=== PATIENT | female | born 2000 | race Caucasian/White ===

== ENCOUNTER 2021-09-28 17:11 | Emergency (ER) | payer SELFPAY ==
--- NOTE | ~2021-09-28 | CT_ITS ---
EXAMINATION: CT soft tissue neck wo con DATE: 09/28/2021 18:21 INDICATION: Right branchial cleft cyst TECHNIQUE: Computed tomography (CT) of the neck was performed without intravenous contrast. The dose- length product was 327.75 mGy-cm. Automated exposure control and iterative reconstruction technique w ere employed. COMPARISON: No prior studies for comparison. FINDINGS: Anterior to the the right sternocleidomastoid mastoid muscle there is a cystic mass measuri ng 2 x 1.3 x 1.8 cm, suspicious for branchial cleft cyst. Differential diagnosis includes sebaceous c yst and abscess. Thyroid gland is unremarkable. Lung apices are normal. No endobronchial lesions. No fracture, subluxation or dislocation. Paranasal sinuses and mastoids are pneumatized. No abnormality of the mucosal or parapharyngeal spaces. No thoracic lymphadenopathy. IMPRESSION: 1. Cystic mass anterior to the right sternocleidomastoid muscle measuring 2 x 1.3 x 1.8 cm, most like ly a branchial cleft cyst given the clinical history. Differential diagnosis would include sebaceous cyst and abscess in the appropriate clinical setting. Reviewed, dictated and finalized at location A. IMPRESSION: 1. Cystic mass anterior to the right sternocleidomastoid muscle measuring 2 x 1 .3 x 1.8 cm, most likely a branchial cleft cyst given the clinical history. Dif ferential diagnosis would include sebaceous cyst and abscess in the appropriate clinical setting.
[2021-09-28 17:14] VITALS: BP 113/64; PULSE 62; RESP 18; TEMP 36.2; O2SAT 100
--- NOTE | 2021-09-28 17:42 | ED.SKABFB ---
HPI - Skin/Abscess/Foreign Bdy General Chief complaint: Skin/Abscess/Foreign Body <Emilia Vail PA-C - Last Filed: 09/28/21 18:57> Stated complaint: cyst on neck <Emilia Vail PA-C - Last Filed: 09/28/21 18:57> Time Seen by Provider: 09/28/21 17:23 <SIMONA Wright Last Filed: 09/28/21 18:57> Source: patient <Emilia Vail PA-C - Last Filed: 09/28/21 18:57> Mode of arrival: ambulatory <SIMONA Wright Last Filed: 09/28/21 18:57> Limitations: no limitations <Emilia Vail PA-C - Last Filed: 09/28/21 18:57> History of Present Illness HPI narrative: This is a 21-year-old female that presents to the emergency department for a cyst on her neck present for the last 6 months. Reports she has been evaluated by ENT for this and diagnosed with a branchial cleft cyst. She was supposed to have further imaging and follow-up, but lost her insurance. Reports over the last month the cyst has become painful. She has regained insurance which prompted her to be seen for this again. Denies fever or erythema of the cyst. <Emilia Vail PA-C - Last Filed: 09/28/21 18:57> Related Data Allergies/Adverse reactions: Allergies Allergy/AdvReac Type Severity Reaction Status Date / Time No Known Allergies Allergy Verified 09/28/21 17:17 <Emilia Vail PA-C - Last Filed: 09/28/21 18:57> Review of Systems Review of Systems: CONSTITUTIONAL: Denies fever ENT: Denies dysphagia RESPIRATORY: Denies dyspnea. <SIMONA Wright Last Filed: 09/28/21 18:57> All systems reviewed & are unremarkable except as noted in HPI and below <SIMONA Wright Last Filed: 09/28/21 18:57> [facility] Past Medical History Medical History: Medical History (Updated 09/29/21 @ 00:00 by Background Daemon) Anxiety and depression Suicide attempt, sequela <Emilia Vail PA-C - Last Filed: 09/28/21 18:57> Social History Social History: Social History Smoking status: Former smoker Smoking end date: 11/29/17 Alcohol intake: never <Emilia Vail PA-C - Last Filed: 09/28/21 18:57> Exam Narrative: GENERAL: Well-appearing, well-nourished, and in no acute distress. HEAD: Normocephalic, atraumatic. EYES: EOMI. ENT: Nares clear, no rhinorrhea or epistaxis. Mucous membranes moist. Oropharynx without tonsillar hypertrophy exudate or other lesions. Bilateral TMs pearly lion non-bulging NECK: Supple. Soft, 10 cm mass noted on the right side of the neck anteriorly, no overlying erythema or fluctuance to suggest infection CHEST: Clear to auscultation. No respiratory distress. No wheezes rales or rhonchi HEART: Regular rate and rhythm. No murmur heard. Normal peripheral pulses. EXTREMITIES: Normal range of motion. No edema. SKIN: Warm, dry, no rash. NEURO: No focal deficits. Alert and oriented x3. PSYCH: Normal mood and affect <Emilia Vail PA-C - Last Filed: 09/28/21 18:57> Course LEISURE STUDIES PROFESSOR/PA Physician Supervision For this patient encounter, I reviewed the LEISURE STUDIES PROFESSOR or PA documentation, treatment plan, and medical decision making; and I agree with plan. Talia Ledesma MD <Talia Ledesma MD - Last Filed: 09/29/21 00:17> Vital Signs Vital signs: Vital Signs Temperature 36.2 C L 09/28/21 17:14 Pulse Rate 62 09/28/21 17:14 Respiratory Rate 18 09/28/21 17:14 Blood Pressure 113/64 09/28/21 17:14 Pulse Oximetry 100 09/28/21 17:14 Temperature 36.2 C L 09/28/21 17:14 Pulse Rate 62 09/28/21 17:14 Respiratory Rate 18 09/28/21 17:14 Blood Pressure 113/64 09/28/21 17:14 Pulse Oximetry 100 09/28/21 17:14 <Emilia Vail PA-C - Last Filed: 09/28/21 18:57> Vital Signs Temperature 36.2 C L 09/28/21 17:14 Pulse Rate 62 09/28/21 17:14 Respiratory Rate 18 09/28/21 17:14 Blood Pressure 113/64 09/28/21 17:14 Pulse Oximetry 100 09/28/21 17:14
[2021-09-28 17:54] LABS: Basophils Absolute Auto 0.1 K/mm3 (0.0-0.1); Basophils Percent Auto 0.8 % (0.2-1.2); Eosinophils Absolute Auto 0.3 K/mm3 (0-0.3); Eosinophils Percent Auto 3.2 % (0-4.4); Hematocrit 43.3 % (37.0-47.0); Hemoglobin 14.2 g/dL (12.0-15.0); Immature Granulocyte Absolute 0.03 K/mm3 (0.00-0.031); Immature Granulocyte Percent A 0.3 % (0-0.5); Lymphocytes Absolute Auto 3.21 K/mm3 (0.9-3.2); Lymphocytes Percent Auto 31.1 % (18.3-44.2); Mean Corpuscular HGB Conc 32.8 g/dl (32-36); Mean Corpuscular Volume 94.5 fl (80-100); Mean Platelet Volume 9.8 fl (7.4-10.4); Monocytes Absolute Auto 0.5 K/mm3 (0.1-0.6); Neutrophils Absolute Auto 6.1 K/mm3 (1.3-6.7); Neutrophils Percent Auto 59.6 % (45.5-73.1); Platelet Count Result 249 k/mm3 (150-375); Red Blood Count 4.58 M/mm3 (4.2-5.4); Red Cell Distribution Width 12.2 % (11.5-14.5); White Blood Count 10.3 K/mm3 (4.5-10.0)
[2021-09-28 18:11] LABS: Anion Gap 7 mmol/L (8-16); Blood Urea Nitrogen 16 mg/dL (7-17); CRP < 0.5 mg/dL (<1.0); Calcium 9.5 mg/dL (8.4-10.2); Carbon Dioxide 30 mmol/L (22-30); Chloride 102 mmol/L (98-107); Estimated CRCL calculation 84 ml/min; Estimated Glomerular Filt Rate > 60; Glucose 99 mg/dL (65-110); Sodium 139 mmol/L (137-145)
[2021-09-28 18:23] LABS: Erythrocyte Sedimentation Rate 3 mm/hr (0-20)
== END 2021-09-28 19:05 | disposition home or self-care (01) ==
PROVIDERS: Physician Assistant; Emergency Provider Emergency Medicine; PCP Family Medicine
DX: Q18.0 Sinus, fistula and cyst of branchial cleft (principal); Z87.891 Personal history of nicotine dependence
CPT/HCPCS: 36415; 70490; 80048; 85025; 85652; 86140; 99284

== ENCOUNTER 2022-01-20 01:01 | Day surgery (SDC) | payer OTHER, SELFPAY ==
[2022-01-12 09:37] VITALS: BMI 22.3
--- NOTE | 2022-01-12 09:45 | PC.NURSE ---
Report to the Outpatient Waiting Room, entrance under the green pavilion located off [facility], at time 0615 on date 01/20/22. OR Time: 0815. - You will be asked a series of questions to screen for COVID 19 for your protection. - A mask is required within the hospital. - No visitors are allowed at this time. Preoperative COVID Testing Requirements: No COVID Test needed if: (proof is required; if not received patient will have Rapid Test prior to entry) - Patient has received COVID Vaccine at least 14 days prior to procedure date or - Patient has positive COVID test result within last 90 days of surgery date. COVID Test needed if above criteria is not met Patients may have clear liquids (water, carbonated beverages, clear teas, apple juice) until 3 hours prior to surgery with a maximum of 20 ounces. - No food from midnight until time of surgery Take the following medications with a SIP of water the morning of surgery: CEPHALEXIN, CLONIDINE, ESCITALOPRAM Medications to discontinue per physician: N/A Date to take last dose: N/A Please no make-up, nail sami, hairspray, perfume, deodorant, or body powder the day of surgery. No jewelry (including any body piercings) or valuables the day of surgery, leave them at home. Please take a shower or bath the night before, or the morning of, surgery with an antibacterial soap. Wear comfortable, loose fitting clothing. - Jewelry must be removed prior to entering the operating room. Rings and piercings that are not removed may be cut off. - The hospital will not accept responsibility for valuables. - Please leave all valuables, including medications, at home the day of surgery. If you are going home after surgery, a licensed local flatbed driver must drive you home. - NO public transportation without another adult. - We recommend that an adult stay with you for 24 hours following discharge. - We also recommend that you do not drive, make important decision, drink alcoholic beverages, or take any drugs that were not prescribed by your health care provider for at least 24 hours after your discharge time. Follow any additional instructions given to you from your surgeon. Telephone instructions given to REY MUNOZ and asked if any additional questions and then verbalized understanding. Patient advised to call surgeon office or pre surgery nurse liaison [phone] if any additional questions.
--- NOTE | 2022-01-19 06:48 | PM.HPGS ---
History of Present Illness History of Present Illness Consent: Risks, benefits, and alternatives have been discussed and questions answered. Patient agrees to proceed with procedure. 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 it has been draining lately plans excision Review of Systems Review of Systems: All systems reviewed & are unremarkable except as noted in HPI and below ROS unobtainable: Yes unobtainable due to endotracheal tube PMFSH Past Medical History Medical History Anxiety and depression Suicide attempt, sequela Social History Social History Smoking status: Never smoker Smoking end date: 11/29/17 Alcohol intake: current Drinks per week: 6 Substance use: current Substance use type: marijuana Living arrangements: with friend(s) Spiritual care concerns: No Meds Home Medications and Allergies Home Medications Medication Instructions Recorded Confirmed Type cephalexin 500 mg capsule 500 mg PO Q12H #20 cap 12/30/21 01/12/22 Rx clonidine HCl 0.3 mg tablet 0.5 mg PO DAILY tablet 12/30/21 01/12/22 History escitalopram oxalate 20 mg tablet 20 mg PO DAILY 12/30/21 01/12/22 History Allergies Allergy/AdvReac Type Severity Reaction Status Date / Time No Known Allergies Allergy Verified 01/12/22 09:36 Exam Narrative: as clear heart rhythms ABS soft extremities negative right cyst in the mid neck Assessment and Plan Additional Plan plan excision branchial cleft cyst right side
--- NOTE | 2022-01-19 06:51 | P.HP_ITS ---
History of Present Illness History of Present Illness Consent: Risks, benefits, and alternatives have been discussed and questions answered. Patient agrees to proceed with procedure. Chief complaint: right branchial cleft cyst Narrative: Phil Cesar is a 21 year old female [facility] Past Medical History Medical History Anxiety and depression Suicide attempt, sequela Social History Social History Smoking status: Never smoker Smoking end date: 11/29/17 Alcohol intake: current Drinks per week: 6 Substance use: current Substance use type: marijuana Living arrangements: with friend(s) Spiritual care concerns: No Meds Home Medications and Allergies Home Medications Medication Instructions Recorded Confirmed Type cephalexin 500 mg capsule 500 mg PO Q12H #20 cap 12/30/21 01/12/22 Rx clonidine HCl 0.3 mg tablet 0.5 mg PO DAILY tablet 12/30/21 01/12/22 History escitalopram oxalate 20 mg tablet 20 mg PO DAILY 12/30/21 01/12/22 History Allergies Allergy/AdvReac Type Severity Reaction Status Date / Time No Known Allergies Allergy Verified 01/12/22 09:36
[2022-01-20] VITALS (10 sets, daily range): BP systolic 107–141; BP diastolic 71–92; PULSE 55–115; RESP 16–20; TEMP 36.3–36.7; O2SAT 98–100; BMI 21.8
--- NOTE | 2022-01-20 05:54 | WPDHPUPDATE1 ---
History and Physical Update Update Date/Time: 01/20/22 05:54 History and Physical has been reviewed, including an updated exam of the patient. There are NO changes in the patient's condition. Risks, benefits, and alternatives have been discussed and questions answered. Patient agrees to proceed with procedure.
--- NOTE | 2022-01-20 08:00 | SUR.PREOP ---
DR. LOZANO AWARE THAT PATIENT HAS JEWELRY IN NOSE AND RIGHT EAR
[2022-01-20] MEDS: LACTATED RINGERS 1,000 ML 30 ML IV CONT (08:09)
--- NOTE | 2022-01-20 08:14 | WPDANESEPPF ---
Anes - Initial Pre Proc Eval Procedure: Operation Date: 01/20/22 08:45 Proposed Procedures p Excision Right Branchial Cleft Cyst - Sharif Hunt MD Date/Time: 01/20/22 08:14 Surgeon: Sharif Hunt MD Pre Op Diagnosis: right branchial cleft cyst Patient Data Age: 21 Gender: F Height: 1.63 m Weight: 57.6 kg Allergies Allergy/AdvReac Type Severity Reaction Status Date / Time No Known Allergies Allergy Verified 01/20/22 07:20 Home Medications Medication Instructions Recorded Confirmed Type cephalexin 500 mg capsule 500 mg PO Q12H #20 cap 12/30/21 01/12/22 Rx clonidine HCl 0.3 mg tablet 0.5 mg PO DAILY tablet 12/30/21 01/12/22 History escitalopram oxalate 20 mg tablet 20 mg PO DAILY 12/30/21 01/12/22 History Patient hx anesthesia problems: none Family hx anesthesia problems: none Results Review: All pre-operative results and documents have been reviewed as part of the pre-operative evaluation. [facility] Past Medical History Medical History Anxiety and depression Suicide attempt, sequela Social History Social History Smoking status: Never smoker Smoking end date: 11/29/17 Alcohol intake: current Drinks per week: 6 Substance use: current Substance use type: marijuana Living arrangements: with friend(s) Spiritual care concerns: No Anes - Eval Final PreProcedure Day of Procedure 01/20/22 08:14 Patient weight: normal Heart: regular rate and rhythm Lungs: clear to auscultation Airway: Mallampati scale class II Last oral intake: >/= 8 hours ASA classification: II Emergent: no Anesthetic plan: proceed Anesthesia type and monitoring: general ETT and standard monitoring Results Review: All pre-operative results and documents have been reviewed as part of the pre-operative evaluation. Informed Consent: The patient's anesthetic plan and its attendant risks and benefits were discussed with the patient/family/POA. Questions were solicited and answers provided to the satisfaction of the patient/family/POA.
[2022-01-20] MEDS: LIDO 2%/EPINEPHRINE 1:100,000 20 ML VIAL INFILTRATE (08:56)
--- NOTE | 2022-01-20 09:46 | W.PM.PROC2 ---
Procedure Note - Detailed Date of Procedure 01/20/22 Pre-op Diagnosis right branchial cleft cyst Post-op Diagnosis same Procedure Performed Patient was prepped and draped in the usual fashion duction and general endotracheal anesthesia the opening of the branchial cyst was noted elliptical incision made around the cyst was followed into the deep into the neck and a stasis was obtained with clamps cautery bipolar cautery and hematuria a right angle clamp was used to clamp the base of the cyst and suture ligated with 2-0 silk was then closed in layers after a Iván drain placed in of Monocryl and glue Surgeon Sharif Hunt MD Description of Procedure Excision branchial cleft cyst
[2022-01-20] MEDS: fentaNYL CITRATE INJ (*CRX) 100 MCG/2 ML VIAL 25 MCG IV PUSH ×8 (10:15→10:38)
[2022-01-20] MEDS: oxyCODONE HCL (*CRX) 5 MG TAB IR PO (12:01)
== END 2022-01-20 12:36 | disposition home or self-care (01) ==
PROVIDERS: PCP Family Medicine; Visit Provider Otolaryngology
PROC: (CPT 42810; principal; 2022-01-20 08:45)
DX: Q18.0 Sinus, fistula and cyst of branchial cleft (principal); L98.8 Other specified disorders of the skin and subcutaneous tissue; F12.90 Cannabis use, unspecified, uncomplicated
CPT/HCPCS: 42810; 88305; 88312; A9270; J0330; J1100; J2250; J2405; J2704; J3010; J7120

== ENCOUNTER 2023-05-25 00:42 | Day surgery (SDC) | payer SELFPAY ==
[2023-05-19 14:03] VITALS: BMI 21.9
--- NOTE | 2023-05-19 14:09 | PC.NURSE ---
Report to the Outpatient Waiting Room, entrance under the green pavilion located off [facility], at time _0945 on date _05/25/23_. Planned Procedure Time: 1145_. Time changes happen often and if your time is changed the preop area will call you the afternoon before. - You and your visitor will be asked to self-screen and do not enter if you have any COVID symptoms. - A mask is optional within the hospital at this time. Patients may have clear liquids (water, carbonated beverages, clear teas, apple juice) until 3 hours prior to surgery with a maximum of 20 ounces. - No food from midnight until time of surgery - Infants may have breast milk until 4 hours before surgery, formula 6 hours prior to surgery. - Children will be allowed to drink immediately following surgery. If applicable, please bring a bottle or sippy cup to assist with drinking. Juice, water, soda, and popsicles are readily available. For infants on formula, please bring formula the day of surgery. Pacifiers are allowed. Take the following medications with a SIP of water the morning of surgery: ____VENLAFEXINE, MAY TAKE HYDROXIZINE, PROPANOLOL IF NEEDED DO NOT STOP ANY OF YOUR OTHER PRESCRIPTION MEDICATIONS PRIOR TO SURGERY ?EXCEPT THE FOLLOWING Medications to discontinue per physician NONE Date to take last dose Please no make-up, nail greek, hairspray, perfume, deodorant, or body powder the day of surgery. No jewelry (including any body piercings) or valuables the day of surgery, leave them at home. Please take a shower or bath the night before, or the morning of, surgery with an antibacterial soap. Wear comfortable, loose fitting clothing. Children are encouraged to wear pajamas. - Jewelry must be removed prior to entering the operating room. Rings and piercings that are not removed may be cut off. - The hospital will not accept responsibility for valuables. - Please leave all valuables, including medications, at home the day of surgery. If you are going home after surgery, a licensed driver messenger must drive you home. - NO public transportation without another adult if you receive anesthesia. - We recommend that an adult stay with you for 24 hours following discharge. - We also recommend that you do not drive, make important decision, drink alcoholic beverages, or take any drugs that were not prescribed by your health care provider for at least 24 hours after your discharge time. For Pediatric surgeries, we recommend two adults accompany the child home. Follow any additional instructions given to you from your surgeon. If you or anyone in your household have experienced Covid symptoms in the past week, please notify your surgeon or the nurse liaison at the phone number below for possible testing. Telephone instructions given to _KRYSTINO_and asked if any additional questions and then verbalized understanding. Patient advised to call surgeon office or pre surgery nurse liaison [phone] if any additional questions.
--- NOTE | 2023-05-24 16:56 | PM.IMHP ---
H&P: HPI History of Present Illness Date/Time: 05/24/23 16:56 Chief Complaint: Recurrent tonsillitis chronic tonsillitis sleep disordered breathing tonsillar hypertrophy snoring adenoid hypertrophy Narrative: planned procedure Review of Systems Review of Systems: All systems reviewed & are unremarkable except as noted in HPI and below [facility] Past Medical History Medical History Anxiety and depression 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 Suicide attempt, sequela Surgical History Surgical History H/O neck surgery 01.20.22 branchial cleft cyst removal Social History Social History (Updated 03/30/23 @ 13:09 by Nurys Schmitt MA) Years smoked: 2 Smoking status: Former smoker Tobacco type: cigarettes Smoking end date: 11/29/17 Alcohol intake: current Drinks per week: 3 Substance use: current Substance use type: marijuana Other substance usage details: DAILY Lack of Transportation: No Lack of Food: Never True Current Housing: I Have Housing Concerned About Future Housing: No Difficulty Paying Gas/Electric Bills: No Difficulty Paying for Meds: YES Currently Unemployed: No Education: High School Diploma/GED Difficulty w/ Childcare or Family Care: No Living arrangements: alone Spiritual care concerns: No Meds Home Medications and Allergies Home Medications Medication Instructions Recorded Confirmed Type omeprazole 10 mg capsule,delayed 10 mg PO DAILY #30 caps 03/22/23 05/19/23 Rx release venlafaxine 37.5 mg See Rx Instructions .Route 04/09/23 05/19/23 Rx capsule,extended release 24 hr .COMPLEX #60 caps hydroxyzine HCl 25 mg tablet 25 mg PO TID PRN anxiety #60 tabs 05/03/23 05/19/23 Rx propranolol 10 mg tablet 10 mg PO BID PRN anxiety #60 tabs 05/03/23 05/19/23 Rx Allergies Allergy/AdvReac Type Severity Reaction Status Date / Time No Known Allergies Allergy Verified 03/30/23 13:13 Exam Narrative: large tonsils large adenoids Assessment and Plan Assessment and plan (1) Nasal obstruction: Code(s): J34.89 - Other specified disorders of nose and nasal sinuses Status: Acute Assessment and Plan: Plan OR tonsillectomy adenoidectomy risks were discussed including bleeding infection damage to surrounding structures inherent risks of using her cots need for further procedures change in swallow change in taste postoperative bleeding 3-5%.? Patient voiced understanding of these risks and agreed.? Damage to any structure above the clavicles by myself damage to any structure during the induction and maintenance of anesthesia. (2) Snoring: Code(s): R06.83 - Snoring Status: Acute (3) Adenoid hypertrophy: Code(s): J35.2 - Hypertrophy of adenoids Status: Acute (4) Recurrent tonsillitis: Code(s): J03.91 - Acute recurrent tonsillitis, unspecified Status: Acute (5) Chronic tonsillitis: Code(s): J35.01 - Chronic tonsillitis Status: Acute
[2023-05-25] VITALS (9 sets, daily range): BP systolic 105–131; BP diastolic 68–85; PULSE 57–103; RESP 12–18; TEMP 36.1–36.4; O2SAT 99–100; BMI 24.5
--- NOTE | 2023-05-25 07:15 | WPDHPUPDATE1 ---
History and Physical Update Update Date/Time: 05/25/23 07:15 History and Physical has been reviewed, including an updated exam of the patient. There are NO changes in the patient's condition. Risks, benefits, and alternatives have been discussed and questions answered. Patient agrees to proceed with procedure.
[2023-05-25] MEDS: LACTATED RINGERS 1,000 ML 30 ML IV CONT ×2 (12:10→14:29)
[2023-05-25] MEDS: ACETAMINOPHEN 500 MG TABLET 1000 MG PO (12:15)
--- NOTE | 2023-05-25 12:45 | P.PNAN_ITS ---
Anes - Initial Pre Proc Eval Procedure: Operation Date: 05/25/23 13:15 Proposed Procedures p Tonsillectomy And Adenoidectomy - Gregg Pineda MD Date/Time: 05/25/23 12:45 Surgeon: Gregg Pineda MD Pre Op Diagnosis: Hypertropic Adenoids, Tonsillitis Patient Data Age: 23 Gender: F Height: 1.63 m Weight: 58 kg Allergies Allergy/AdvReac Type Severity Reaction Status Date / Time No Known Allergies Allergy Verified 05/25/23 12:02 Home Medications Medication Instructions Recorded Confirmed Type omeprazole 10 mg capsule,delayed 10 mg PO DAILY #30 caps 03/22/23 05/19/23 Rx release venlafaxine 37.5 mg See Rx Instructions .Route 04/09/23 05/19/23 Rx capsule,extended release 24 hr .COMPLEX #60 caps hydroxyzine HCl 25 mg tablet 25 mg PO TID PRN anxiety #60 tabs 05/03/23 05/19/23 Rx propranolol 10 mg tablet 10 mg PO BID PRN anxiety #60 tabs 05/03/23 05/19/23 Rx Patient hx anesthesia problems: none Family hx anesthesia problems: none Results Review: All pre-operative results and documents have been reviewed as part of the pre- operative evaluation. [facility] Past Medical History Medical History Anxiety and depression 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 Suicide attempt, sequela Surgical History Surgical History H/O neck surgery 01.20.22 branchial cleft cyst removal Social History Social History Years smoked: 2 Smoking status: Former smoker Tobacco type: cigarettes Smoking end date: 11/29/17 Alcohol intake: current Drinks per week: 3 Substance use: current Substance use type: marijuana Other substance usage details: DAILY Lack of Transportation: No Lack of Food: Never True Current Housing: I Have Housing Concerned About Future Housing: No Difficulty Paying Gas/Electric Bills: No Difficulty Paying for Meds: YES Currently Unemployed: No Education: High School Diploma/GED Difficulty w/ Childcare or Family Care: No Living arrangements: alone Spiritual care concerns: No Anes - Eval Final PreProcedure Day of Procedure 05/25/23 12:45 Patient weight: normal Heart: regular rate and rhythm Lungs: clear to auscultation Airway: Mallampati scale class 1 Neurological: alert and oriented Last oral intake: >/= 8 hours ASA classification: III Emergent: no Anesthetic plan: proceed Anesthesia type and monitoring: general ETT and standard monitoring Results Review: All pre-operative results and documents have been reviewed as part of the pre- operative evaluation. Informed Consent: The patient's anesthetic plan and its attendant risks and benefits were discussed with the patient/family/POA. Questions were solicited and answers provided to the satisfaction of the patient/family/POA.
[2023-05-25] MEDS: fentaNYL CITRATE INJ (*CRX) 100 MCG/2 ML VIAL 25 MCG IV PUSH ×6 (13:58→14:44)
[2023-05-25] MEDS: oxyCODONE HCL (*CRX) 5 MG TAB IR PO (15:12)
--- NOTE | 2023-05-25 15:34 | W.PM.PROC2 ---
Procedure Note - Detailed Date of Procedure 05/25/23 Pre-op Diagnosis Hypertropic Adenoids, Tonsillitis Post-op Diagnosis Same Procedure Performed tonsillectomy Surgeon Gregg Pineda MD Anesthesia General Indications see above Findings large tonsils essentially absent adenoids Description of Procedure patient identified consent verified in the preoperative holding area. Patient brought operating. Time-out performed. General anesthesia induced endotracheal tube secured airway. Patient prepped draped position procedure confirmed. Second time-out performed. McIvor mouth gag inserted reveal large tonsils chronic appearing as well. They were removed in the extracapsular plane using Bovie electrocautery at a setting of 10. Any bleeding was controlled with Bovie suction electrocautery setting of 12. This was a bilateral procedure between tonsils McIvor mouth gag was lowered to allow blood flow to return to the tongue. Following procedure McIvor mouth gag was again lowered for 30 seconds and reopened to reveal no further bleeding. Adenoids reviewed essentially nonexistent. McIvor mouth gag was removed. Total blood loss 1 cc. I performed all dictated portions of procedure. Patient taken to PACU. No immediate complications. Estimated Blood Loss 1 Drains No Packing No Pathology Yes Complications No immediate complications Condition Stable Disposition PACU [facility] Billing Surgery - Charge Forward: Surgery Billing
== END 2023-05-25 15:55 | disposition home or self-care (01) ==
PROVIDERS: PCP Family Medicine; Visit Provider Otolaryngology
PROC: (CPT 42826; principal; 2023-05-25 13:15)
DX: J03.91 Acute recurrent tonsillitis, unspecified (principal); J35.01 Chronic tonsillitis; J34.89 Other specified disorders of nose and nasal sinuses; R06.83 Snoring; F41.8 Other specified anxiety disorders; Z87.891 Personal history of nicotine dependence; F12.90 Cannabis use, unspecified, uncomplicated
CPT/HCPCS: 42826; 88300; 88302; A9270; J0330; J1100; J2250; J2405; J2704; J3010; J7120

== ENCOUNTER 2025-11-14 15:13 | Emergency (ER) | payer OTHER, SELFPAY ==
--- NOTE | 2025-11-14 15:33 | ED.URI ---
HPI - URI/Sore Throat General Chief Complaint: Upper Respiratory Infection Stated Complaint: flu symptoms Time Seen by Provider: 11/14/25 15:15 Source: patient Mode of arrival: ambulatory Limitations: no limitations History of Present Illness HPI Narrative: Patient is a 25-year-old female who presents with body aches, congestion, intermittent dizziness, cough , nausea and vomiting for 3 days. Patient states most symptoms have improved today except for body aches and was dizzy this morning. Patient has been able to keep fluids and food down. Patient has missed work the last 3 days.Patient did at home COVID testing that was negative. Related Data Home Medications ?Medication ?Instructions ?Recorded ?Confirmed ?Last Taken ?Type levonorgestrel 20.4 mcg/24 hr (up 1 device intrauterine ONCE 01/06/24 11/14/25 Unknown History to 8 yrs) 52 mg intrauterine device (Liletta) buspirone 10 mg tablet 10 mg PO ONCE 09/03/25 11/14/25 Unknown History cariprazine 3 mg capsule (Vraylar) mg PO 09/03/25 09/03/25 Unknown History Allergies Allergy/AdvReac Type Severity Reaction Status Date / Time No Known Allergies Allergy Verified 11/14/25 15:55 Review of Systems Review of Systems: All systems reviewed & are unremarkable except as noted in HPI and below Constitutional: Constitutional: Denies chills, Denies fatigue, Denies fever(s), Denies headache(s), Denies malaise and Denies weakness Eyes: Eyes: Denies blurry vision, Denies itchy eyes and Denies loss of vision ENT: Denies otalgia, Denies headache(s), Reports nasal congestion, Denies sinus pain and Denies sore throat Cardiovascular: Cardiovascular: Denies chest pain, Denies irregular heart rhythm and Denies dyspnea Respiratory: Respiratory: Reports cough and Denies dyspnea Gastrointestinal: Gastrointestinal: Denies abdominal pain, Denies diarrhea, Reports nausea and Reports vomiting Musculoskeletal: Musculoskeletal: Denies back pain, Reports myalgias and Denies arthralgias Integumentary/Breasts: Skin/Breast: Denies pruritus and Denies rash Neurologic: Denies headache(s), Denies loss of vision and Denies weakness Psychiatric: Psychiatric: Reports no additional psychiatric complaints Endocrine: Endocrine: Denies fatigue Allergic/Immunologic: Allergic/Immunologic: Denies itchy eyes PMFSH Past Medical History Medical History Anxiety and depression Suicide attempt, sequela 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 Surgical History Surgical History H/O neck surgery 01.20.22 branchial cleft cyst removal Social History Social History Years smoked: 2 Smoking status: Former smoker Tobacco type: cigarettes Smoking end date: 11/29/17 Alcohol intake: current Drinks per week: 3 Substance use: current Substance use type: marijuana Other substance usage details: DAILY Lack of Transportation: No Lack of Food: Never True Current Housing: I Have Housing Concerned About Future Housing: No Difficulty Paying Gas/Electric Bills: No Difficulty Paying for Meds: YES Currently Unemployed: No Education: High School Diploma/GED Difficulty w/ Childcare or Family Care: No Living arrangements: alone Spiritual care concerns: No Comments At time of signature, agree with nursing past medical, surgical, social and family history. There is no relevant family history pertinent to the presenting complaint. Exam Const: General: cooperative, healthy appearing, comfortable, no acute distress and well nourished Nutritional Appearance: well nourished Orientation/consciousness: patient oriented x3 Limitations: no limitations HENMT: Head: normal to inspection, normocephalic and atraumatic Ears: hearing grossly normal bilaterally, external ears normal, TM's normal bilaterally, EAC's normal and no periauricular adenopathy Face/Nose/Sinus: Normal external nose present, Abnormal mucous membranes and turbinates present erythematous bilateral and diffuse, normal facial exam, sinuses nontender and face symmetric Face and sinus: normal facial exam, sinuses nontender and face symmetric Mouth: Yes Normal oral and palatal mucosa present, Yes lip normal, Yes tongue normal, Yes Normal salivary glands and ducts present, Yes oropharynx normal and Yes moist mucous membranes Teeth and gingiva: dentition normal Throat: posterior oropharynx normal, tonsils normal and uvula midline Eyes: General: appearance normal, both eyes and all related structures Alignment and Position: alignment normal and position normal Periorbital: periorbital findings normal Eyelids: eyelids normal Pupils: Equal, round and reactive pupils present Neck: Neck: normal visual inspection, full ROM, no lymphadenopathy and supple Chest: Chest palpation & inspection: normal inspection of the chest and normal palpation of entire chest wall Resp: Effort & Inspection: normal respiratory effort and able to speak in complete sentences Auscultation: clear to auscultation bilaterally, no crackles, no rales, no rhonchi and no wheezes Cardio: Rate: regular rate Rhythm: regular rhythm Heart sounds: S1 normal heart sound present and S2 normal heart sound present GI: Inspection: normal to inspection Skin: General skin exam: normal color and no rashes or lesions noted Neuro: General: patient oriented x3 and moves all extremities Cranial nerves: Yes Equal, round and reactive pupils present Speech: normal speech Gait exam (Neuro): Normal gait present Extrem: General: normal to inspection, full ROM and no edema Psych: Appearance: grossly normal and well kempt Mental Status: mental status grossly normal Speech and movement: Normal speech and movement present Affect: normal affect Attitude: cooperative Thought process: Normal thought process present Course Course Emergency Course: Patient is aware of diagnosis, understands and agrees to treatment plan. Anticipatory guidance given. Patient agrees to follow-up as directed and is aware of reasons to seek care at the emergency department. Portions of this record may have been created with voice recognition software Level of Care: Express Care Visit Vital Signs Vital signs: Vital Signs Temperature 36.6 C 11/14/25 16:00 Pulse Rate 91 11/14/25 16:00 Respiratory Rate 16 11/14/25 16:00 Blood Pressure 124/78 11/14/25 16:00 Pulse Oximetry 100 11/14/25 16:00 Temperature 36.6 C 11/14/25 16:00 Pulse Rate 91 11/14/25 16:00 Respiratory Rate 16 11/14/25 16:00 Blood Pressure 124/78 11/14/25 16:00 Pulse Oximetry 100 11/14/25 16:00 [facility] Narrative Medical decision making narrative: influenza was negative. Will treat symptomatically Pt well hydrated appearing, in no respiratory distress, hemodynamically stable. Recommend supportive care. The patient is stable at time of discharge the clinical impression was discussed and the patient was given the opportunity to ask questions, which were addressed as completely as possible given the information available at present. Anticipatory guidance and return to care precautions were discussed and the importance of primary care follow-up was stressed and encouraged. The patient voiced understanding of the plan, indications to return, and the need for follow-up. Exam findings show no acute concerns or changes Patient is appropriate for outpatient treatment and follow-up. Differential Diagnosis Differential Diagnosis: Differential diagnosis considered: Dixon virus, strep pharyngitis, allergic rhinitis, upper respiratory tract infection, sinusitis, rhinosinusitis, nasopharyngitis. viral pharyngitis, otitis media, otitis externa, otitis effusion, foreign body, cerumen impaction, viral syndrome, and influenza. Medical Records I have reviewed the following patient records and this information was taken into consideration when formulating the assessment and plan.: previous clinic visits Lab Data MDM Lab Attestation statement: I personally reviewed the patient's lab results. Discharge Plan Discharge Clinical Impression: Upper respiratory infection Qualifiers: URI type: unspecified viral URI Qualified Code(s): J06.9 - Acute upper respiratory infection, unspecified Patient Disposition: Home Condition: Stable Instructions: Upper Respiratory Infection (ED) Additional Instructions: you were negative for the flu. Use Tessalon Perles as needed for cough. Use Zofran as needed for nausea Your symptoms are likely due to a viral illness, which is not treated with antibiotics. Viral symptoms can be present for up to a few weeks. -For pain/fever, you may take: Tylenol 650-1000mg by mouth every 4-6 hours. Do not exceed 4000mg in 24 hours. Advil (Ibuprofen) 600 mg by mouth every 6 hours. Do not exceed 2400mg in 24 hours. 8 AM: Tylenol 11 AM: Ibuprofen 2 PM: Tylenol 5 PM: Ibuprofen 8 PM: Tylenol 11 PM: Ibuprofen 2 AM: Tylenol 5 AM: Ibuprofen -Antihistamine medication such as Benadryl/Zyrtec at night and Claritin/Arline during the day can help improve symptoms. -Use Flonase twice a day for 5 days then daily to help reduce the inflammation and dry up your sinuses. -You can also use Sudafed behind the pharmacy counter(12 or 24 hour). Be sure to drink plenty of water with these medications at least 8 ounces with every dose and it is important to drink 8 to 10 glasses of water per day. Water is a natural decongestant -Eat and drink things that are easy to swallow, like tea or soup, or popsicles. -Oral rinses such as: Salt water gargles and/or may use topical anesthetic (eg. Chloraseptic spray) or lozenges to relieve dryness or throat pain). -Frequent hand washing or hand tax accounting manager is one of the best ways to prevent spread of infection. -Using a vaporizer or humidifier at night will also help thin secretions and help with coughing up phlegm. Call your Primary Care Doctor and make a follow-up appointment in 3 days. If your cough worsens, you develop a fever greater than 103, you develop shaking chills, a fast heartbeat, trouble breathing and/or feel you are are breathing much faster than usual, call your Primary Care Doctor or go to the ER. Patient Language: Korean Prescriptions: New benzonatate 100 mg capsule 100 mg PO BID PRN (Reason: cough) Qty: 14 0RF ondansetron 4 mg tablet,disintegrating 4 mg PO Q6-8H PRN (Reason: nausea and vomiting) Qty: 7 0RF fluticasone propionate [Flonase Allergy Relief] 50 mcg/actuation spray,suspension 1 spray intranasal DAILY Qty: 16 0RF Rx Instructions: administer into each nostril loratadine 10 mg tablet 10 mg PO DAILY Qty: 30 0RF No Action buspirone 10 mg tablet 10 mg PO ONCE Vraylar 3 mg capsule PO propranolol 60 mg capsule,extended release 24 hr 60 mg PO DAILY Qty: 90 0RF escitalopram oxalate 10 mg tablet 10 mg PO DAILY Qty: 90 0RF Liletta 20.4 mcg/24 hrs (8 yrs) 52 mg intrauterine device 1 device intrauterine ONCE Patient Comments: expires 2025 Rx Instructions: as a single dose hydroxyzine HCl 25 mg tablet 25 mg PO TID PRN (Reason: anxiety) Qty: 60 5RF Follow-up/Referrals: Ksenia Church MD [Primary Care Provider, Family Practice] - 3 Days Stand Alone Forms: Work/School Release IP Time of Disposition: 16:34
[2025-11-14 16:00] VITALS: BP 124/78; PULSE 91; RESP 16; TEMP 36.6; O2SAT 100
[2025-11-14 17:02] LABS: EDINFLUASCREEN Negative (Negative); EDINFLUBSCREEN Negative (Negative)
== END 2025-11-14 16:41 | disposition home or self-care (01) ==
PROVIDERS: Emergency Provider Nurse Practitioner Family; PCP Family Medicine
DX: J06.9 Acute upper respiratory infection, unspecified (principal); F41.9 Anxiety disorder, unspecified; F32.A Depression, unspecified; Z87.891 Personal history of nicotine dependence
CPT/HCPCS: 87804; 99213; G0463